=== PATIENT | female | born 1955 | race Caucasian/White ===

== ENCOUNTER 2021-12-07 08:27 | Emergency (ER) | payer MEDICARE, OTHER ==
[2021-12-07 08:38] VITALS: BP 123/81
--- NOTE | 2021-12-07 09:10 | ED Physician Documentation ---
History of Present Illness - Stated complaint Stated Complaint: SOA/CONGESTION - Chief complaint Chief Complaint: Resp - History obtained from History obtained from: Patient, Family - History of Present Illness Timing: How many days ago (3) - Additonal information Additional information: 66-year-old Kely Perez has recently had a compression fracture in her back which eventually led to diagnosis of metastatic breast cancer. Mets are to the bone. She has been placed on hormonal therapy has had some radiation to her back. She has now developed a rash to her left flank area with shocklike lancinating pains. She is concerned about shingles. She does have interstitial lung disease has had a cough for 3 months she has had imaging done of her chest and numerous capacities and the cough has not changed in the past week. She will see her ultrasonic seaming machine operator in the next 2 weeks. Review of Systems Constitutional: denies: Fever, Chills, Myalgias Ears: denies: Ear pain Nose: denies: Rhinorrhea / runny nose, Congestion, Sinus pressure / pain Throat: denies: Sore throat Cardiac: denies: Chest pain / pressure, Palpitations Respiratory: reports: Dyspnea, Cough GI: denies: Vomiting, Diarrhea Skin: reports: Rash PD PAST MEDICAL HISTORY - Present Medications Home Medications: Ambulatory Orders Medication Instructions Recorded Confirmed Valacyclovir HCl [Valtrex] 1,000 mg PO TID #21 tablet 12/07/21 - Allergies Allergies/Adverse Reactions: Allergies Allergy/AdvReac Type Severity Reaction Status Date / Time No Known Drug Allergies Allergy Verified 12/07/21 08:33 PD ED PE NORMAL - Vitals Vital signs reviewed: Yes (Tachycardic and hypertensive mild) - General General: Alert and oriented X 3, No acute distress, Well developed/nourished - HEENT HEENT: Atraumatic, PERRL, EOMI, Ears normal, Moist mucous membranes, Pharynx benign, Dentition benign - Neck Neck: Supple, no meningeal sign, No bony TTP - Cardiac Cardiac: RRR, No murmur - Respiratory Respiratory: No respiratory distress, Clear bilaterally - Abdomen Abdomen: Normal bowel sounds, Soft, Non tender, Non distended, No organomegaly - Back Back: No CVA TTP, No spinal TTP - Derm Derm: Normal color, Warm and dry, Other (There are tiny erythematous blisters in a dermatomal distribution on the left side likely related to a T10 or 11 dermatome.) - Extremities Extremities: No deformity, No edema - Neuro Neuro: Alert and oriented X 3, computer forensics investigator 2-12 intact, No motor deficit, No sensory deficit, Normal speech Eye Opening: Spontaneous Motor: Obeys Commands Verbal: Oriented GCS Score: 15 - Psych Psych: Normal mood, Normal affect Results - Vitals Vitals: Vital Signs - 24 hr 12/07/21 08:33 Temperature 36.7 C Heart Rate 102 H Respiratory 18 Rate Blood Pressure 123/81 H O2 Saturation 94 Oxygen O2 Source Room air PD MEDICAL DECISION MAKING - ED course Complexity details: considered differential, d/w patient, d/w family ED course: 66-year-old female with a recent diagnosis of metastatic breast cancer has shingles today. We will place her on some valacyclovir. She does have interstitial lung disease she has a chronic cough she has had imaging we are not pursuing further work-up of her lung disease today. She does have follow-up with her specialist. She has been tested multiple times for COVID. She is fully vaccinated. Departure - Departure Disposition: 01 Home, Self Care Clinical Impression: Shingles Qualifiers: Herpes zoster complications: without complications Qualified Code(s): B02.9 - Zoster without complications Condition: Stable Instructions: ED Shingles Follow-Up: Brain Guallpa MD [Provider Admit Priv/Credential] - Prescriptions: Valacyclovir HCl [Valtrex] 1,000 mg PO TID #21 tablet Comments: Kely, today it looks like you have the shingles. I have E scribed some valacyclovir to the [facility] in [place]. The expectation is reduction in your symptoms over the next 2 to 3 days. Follow-up with your ultrasonic seaming machine operator for further evaluation of your lungs as previously planned.
== END 2021-12-07 09:28 | disposition home or self-care (01) ==
LOC: ED 08:27
DX: B02.9 Zoster without complications (principal)
CPT/HCPCS: 99282

== ENCOUNTER 2022-01-28 09:06 | Outpatient (CLI) | payer MEDICARE, OTHER ==
[2022-01-28 09:24] LABS: BASOPHILS # (AUTO) 0.1 10^3/uL (0.0-0.1); BASOPHILS % (AUTO) 1.4 %; EOSINOPHILS % (AUTO) 1.1 %; HCT - HEMATOCRIT 36.8 % (37.0-47.0); HGB - HEMOGLOBIN 13.2 g/dL (12.0-16.0); LYMPHOCYTES # (AUTO) 0.6 10^3/uL (1.5-3.5); MEAN CORPUSCULAR HEMOGLOBIN 34.4 pg (27.0-31.0); MEAN CORPUSCULAR HGB CONC 35.9 g/dL (32.0-36.0); MEAN CORPUSCULAR VOLUME 95.8 fL (81.0-99.0); MEAN PLATELET VOLUME 10.1 fL (7.9-10.8); MONOCYTES # (AUTO) 0.3 10^3/uL (0.0-1.0); MONOCYTES % (AUTO) 7.2 %; NEUTROPHILS # (AUTO) 2.5 10^3/uL (1.5-6.6); PLT - PLATELET COUNT 173 10^3/uL (130-450); RED BLOOD COUNT 3.84 10^6/uL (4.20-5.40); RED CELL DISTRIBUTION WIDTH 16.5 % (12.0-15.0); WHITE BLOOD COUNT 3.5 x10^3/uL (4.8-10.8)
[2022-01-28 09:32] LABS: ALBUMIN 4.4 g/dL (3.2-5.5); ALBUMIN/GLOBULIN RATIO 1.3 (1.0-2.2); BILIRUBIN,TOTAL 0.9 mg/dL (0.2-1.0); CALCIUM 9.9 mg/dL (8.5-10.3); CREATININE 0.7 mg/dL (0.4-1.0); POTASSIUM 3.5 mmol/L (3.5-5.0); TOTAL PROTEIN 7.7 g/dL (6.7-8.2)
== END 2022-01-28 09:07 | disposition home or self-care (01) ==
LOC: LAB 09:06
PROVIDERS: ATTEND Internal Medicine
DX: C50.919 Malignant neoplasm of unspecified site of unspecified female breast (principal)
CPT/HCPCS: 36415; 80053; 85025

== ENCOUNTER 2022-03-19 09:15 | Emergency (ER) | payer MEDICARE, OTHER ==
--- NOTE | 2022-03-19 09:54 | XRAY Report ---
PROCEDURE: Chest 1 View X-Ray INDICATIONS: cough TECHNIQUE: One view of the chest was acquired. COMPARISON: None FINDINGS: Surgical changes and devices: None. Lungs and pleura: Mild increased interstitial prominence. Mediastinum: Mediastinal contours appear normal. Heart size is enlarged. Bones and chest wall: No suspicious bony lesions. Overlying soft tissues appear unremarkable. IMPRESSION: Mild increased interstitial prominence suggestive of interstitial pneumonia. However, edema, similar appearance. Reviewed by: Lacey Beal MD on 03/19/2022 9:53 AM PDT Approved by: Lacey Beal MD on 03/19/2022 9:53 AM PDT Station ID: [id number]
--- NOTE | 2022-03-19 11:22 | ED Physician Documentation ---
History of Present Illness - Stated complaint Stated Complaint: COUGH/BACK PX - Chief complaint Chief Complaint: Resp - History obtained from History obtained from: Patient - History of Present Illness Timing: How many weeks ago (2-3) Pain level max: 1 Pain level now: 1 - Additonal information Additional information: 66-year-old female with a history of interstitial lung disease as well as a history of breast cancer. Not currently undergoing chemotherapy or radiation. Presents to the emergency department with a cough for the past 2 weeks. Described as worsening. No fevers. No chills. Occasional clear sputum. Nothing seems to make it better or worse. 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 She denies smoking. No COVID exposure. No chest pain. No shortness of breath. No hypoxia. Does not use oxygen at home Review of Systems Constitutional: denies: Fever, Chills GI: denies: Vomiting, Diarrhea Skin: denies: Rash Musculoskeletal: denies: Neck pain, Back pain Neurologic: denies: Headache PD PAST MEDICAL HISTORY - Past Medical History Cardiovascular: High cholesterol Respiratory: Other Neuro: None Endocrine/Autoimmune: None GI: None SENIOR BACKUP ADMINISTRATOR: Breast cancer : None HEENT: None Psych: None Musculoskeletal: None Derm: None - Past Surgical History Past Surgical History: No - Present Medications Home Medications: Ambulatory Orders Medication Instructions Recorded Confirmed Albuterol Sulf [Ventolin Hfa 1 puffs INH Q4HR PRN 03/19/22 03/19/22 Inhaler] Atorvastatin [Lipitor] 40 mg PO DAILY 03/19/22 03/19/22 Benzonatate [Tessalon] 200 mg PO TID PRN #30 cap 03/19/22 Letrozole 2.5 mg PO DAILY 03/19/22 03/19/22 Oxycodone HCl 10 mg PO DAILY PRN 03/19/22 03/19/22 Palbociclib [Ibrance] 125 mg PO DAILY 03/19/22 03/19/22 predniSONE [Deltasone] 10 mg PO [id number] #42 tab 03/19/22 - Allergies Allergies/Adverse Reactions: Allergies Allergy/AdvReac Type Severity Reaction Status Date / Time No Known Drug Allergies Allergy Verified 03/19/22 09:24 - Social History Does the pt smoke?: No Smoking Status: Never smoker Does the pt drink ETOH?: No Does the pt have substance abuse?: No - Immunizations Immunizations are current?: Yes PD ED PE NORMAL - Vitals Vital signs reviewed: Yes - General General: Alert and oriented X 3, No acute distress - HEENT HEENT: Moist mucous membranes - Neck Neck: Supple, no meningeal sign - Cardiac Cardiac: RRR, Strong equal pulses - Respiratory Respiratory: No respiratory distress, Clear bilaterally - Derm Derm: Warm and dry - Neuro Neuro: Alert and oriented X 3 - Psych Psych: Normal mood, Normal affect Results - Vitals Vitals: Vital Signs - 24 hr 03/19/22 03/19/22 09:19 11:28 Temperature 36.2 C L Heart Rate 86 75 Respiratory 20 17 Rate Blood Pressure 118/74 133/82 H O2 Saturation 95 99 Oxygen O2 Source Room air - Rads (name of study) Chest x-ray Radiology: Final report received, EMP read contemporaneously, See rad report (Mild anterior stational prominence, suggestive of interstitial pneumonia, however edema could have similar appearance) PD MEDICAL DECISION MAKING - ED course Complexity details: reviewed results, re-evaluated patient, considered differential, d/w patient ED course: 66-year-old female with possible viral URI versus interstitial pneumonitis fl are. No evidence of bacterial infection. No fever. No hypoxia. No respiratory difficulty. We will trial her on steroids for home and have her follow-up with her PCP for further care. Patient is very well-appearing, nontoxic. Patient counseled regarding signs and symptoms for which I believe and urgent re-evaluation would be necessary. Patient with good understanding of and agreement to plan and is comfortable going home at this time This document was made in part using voice recognition software. While efforts are made to proofread this document, sound alike and grammatical errors may occur. Departure - Departure Disposition: Home, Self Care Clinical Impression: Interstitial pneumonitis Condition: Good Instructions: Disease Interstitial Lung Follow-Up: PAUL LUA MD [Primary Care Provider] - Within 1 week Joan Lagunas MD [Physician No Access] - Prescriptions: predniSONE [Deltasone] 10 mg PO [id number] #42 tab Benzonatate [Tessalon] 200 mg PO TID PRN #30 cap PRN Reason: Cough Comments: Your prescriptions were sent to [facility] in [place]. Please follow-up with your doctor for further care. Please return if you worsen. Discharge Date/Time: 03/19/22 11:29
[2022-03-19 11:30] VITALS: BP 133/82
== END 2022-03-19 11:29 | disposition home or self-care (01) ==
LOC: ED 09:15
DX: J84.89 Other specified interstitial pulmonary diseases (principal)
CPT/HCPCS: 99283; 99284

== ENCOUNTER 2022-03-23 17:45 | Outpatient (CLI) | payer MEDICARE, OTHER ==
[2022-03-23] MEDS ORDERED: DIATRIZOATE MEGLU/DIATRIZO SOD 30 ML BOTTLE PO ONE ×2 (18:20→19:40)
--- NOTE | 2022-03-23 20:16 | CT Report ---
PROCEDURE: CHEST W INDICATIONS: METASTATIC BREAST CA CONTRAST: IV CONTRAST: Optiray 320 ml: 100 PO CONTRAST: Optiray 320 ml30 TECHNIQUE: After the administration of intravenous contrast, 1 mm axial images were acquired from the pulmonary apices through the posterior costophrenic angles. Axial 5 mm soft tissue kernel reconstructions were performed as well as 8 mm axial MIP and coronal and sagittal 5 mm reformations. For radiation dose reduction, the following was used: automated exposure control, adjustment of mA and/or kV according to patient size. COMPARISON: None available. FINDINGS: Image quality: Excellent. Lower Neck: No lymphadenopathy by size criteria. Thyroid: Visualized thyroid demonstrates no discrete nodules. Axillae: No lymphadenopathy by size criteria. Chest Wall: Unremarkable. Bones: Multiple compression deformities are demonstrated throughout the thoracic spine. These include mild superior endplate compression deformities of the T4, T5, T6, T7, T9, T12 vertebral bodies with mild loss of height of less than 50%. Mild inferior endplate compression deformities also demonstrate d at T8 and T11 also with loss of height of less than 50%. No retropulsed fragments in the spinal can al. There is osteopenia with no definite destructive bony lesions. There is an indistinct sclerotic l esion partially visualized within the L1 vertebral body. There are bilateral healed rib fractures. Lungs and Airways: No acute consolidation. There are bilateral areas of septal thickening and reticu lation medially within the anterior lungs predominantly within the upper lobes likely representing se quelae of radiation pneumonitis. In addition, heterogeneous patchy ground glass opacities are also de monstrated bilaterally with a medial predominance. The findings may also represent radiation pneumoni tis but the differential includes other infectious inflammatory processes. There is a small indistinc t nodule in the right apex measuring 0.3 cm on series 3 image 34. The trachea and central airways are patent. Pleura: No pneumothorax or pleural effusions. Heart: Heart size is borderline enlarged. No pericardial effusion. Thoracic Vessels: The aorta and pulmonary arteries are normal in size. Mediastinum and Neha: No lymphadenopathy by size criteria. Esophagus: No wall thickening. No hiatal hernia. Abdomen: Visualized upper abdominal solid organs appear normal. Upper abdominal bowel loops are nor mal in caliber. IMPRESSION: 1. Bilateral septal thickening and reticulation consistent with sequelae of radiation pneumonitis dem onstrated medially in the lungs. Patchy heterogeneous areas of groundglass opacity within medial pred ominance in the lungs also likely reflect radiation pneumonitis but the differential includes other i nfectious and inflammatory processes such as atypical infection. 2. Small right apical nodule is also likely related to radiation pneumonitis but attention is recomme nded on follow-up. 3. Osteopenia with heterogeneous appearance of the mouth and indistinct sclerotic region in the verte bral body. Metastatic disease cannot be excluded and correlation is recommended with a bone scan. 4. Multiple mild compression deformities within the thoracic spine of indeterminate acuity. Reviewed by: Donnie Bobby MD on 03/23/2022 8:15 PM PDT Approved by: Donnie Bobby MD on 03/23/2022 8:15 PM PDT Station ID: [id number]
--- NOTE | 2022-03-23 20:23 | CT Report ---
PROCEDURE: Abdomen/Pelvis W INDICATIONS: METASTATIC BREAST CA CONTRAST: IV CONTRAST: Optiray 320 ml: 100 PO CONTRAST: Optiray 320 ml30 TECHNIQUE: After the administration of intravenous contrast, 5 mm thick sections acquired from the diaphragms to the symphysis. 5 mm thick coronal and sagittal reformats were acquired. For radiation dose reducti on, the following was used: automated exposure control, adjustment of mA and/or kV according to aimee ent size. COMPARISON: Concurrent CT of the chest. No prior abdominal CT available. FINDINGS: Image quality: Excellent. Lung bases: There is septal thickening with reticulation medially in the lungs compatible with seque lae of radiation pneumonitis. Heterogeneous indistinct groundglass opacities are demonstrated bilater ally with a medial predominance. Heart size is borderline enlarged. ABDOMEN: Liver: No mass lesion. Gallbladder: Within normal limits without calcified gallstones. Biliary ducts: No biliary ductal dilatation. Pancreas: Unremarkable. Spleen: Normal in size. Adrenal Glands: No adrenal nodules. Kidneys and Ureters: No hydronephrosis. Stomach and Bowel: Stomach, small bowel loops, and colon are normal in caliber and wall thickness. T here is colonic diverticulosis without acute diverticulitis. Peritoneum: No abnormal intraperitoneal fluid. No free air. Ventral Wall: No hernia. Abdominal Nodes: No retroperitoneal or mesenteric adenopathy by size criteria. Vessels: Aorta and inferior vena cava are normal in size. PELVIS: Pelvic Organs: Unremarkable. Bladder: Unremarkable. Pelvic Nodes: No enlarged lymph nodes. Miscellaneous: No inguinal hernias are seen. Bones:The bone marrow is heterogeneous in appearance with multiple indistinct sclerotic lesions like ly representing metastatic disease. Multiple compression deformities are demonstrated within the visu alized lower thoracic and lumbar spine. These include a mild superior endplate compression deformity of the L4 vertebral body with approximately 30% loss of height. Milder superior endplate scalloping a lso demonstrated at L2 and S1. There are mild superior endplate compression deformity is also demonst rated at T9 and T12 as well as inferior endplate compression deformities of T8 and T11. No retropulse d fragments in spinal canal. IMPRESSION: 1. Heterogeneous appearance of the bone marrow with multiple indistinct sclerotic lesions consistent with metastatic disease. 2. Multiple mild compression deformity is within the lumbar spine and visualized lower thoracic spine . Pathologic fractures cannot be excluded. Reviewed by: Donnie Davalos MD on 03/23/2022 8:22 PM PDT Approved by: Donnie Davalos MD on 03/23/2022 8:22 PM PDT Station ID: [id number]
== END 2022-03-23 17:46 | disposition home or self-care (01) ==
LOC: DI 17:45
PROVIDERS: ATTEND Internal Medicine
DX: C50.919 Malignant neoplasm of unspecified site of unspecified female breast (principal); C41.9 Malignant neoplasm of bone and articular cartilage, unspecified; S32.049A Unspecified fracture of fourth lumbar vertebra, initial encounter for closed fracture; S32.019A Unspecified fracture of first lumbar vertebra, initial encounter for closed fracture; S32.19XA Other fracture of sacrum, initial encounter for closed fracture; S22.069A Unspecified fracture of T7-T8 vertebra, initial encounter for closed fracture; S22.079A Unspecified fracture of T9-T10 vertebra, initial encounter for closed fracture; S22.089A Unspecified fracture of T11-T12 vertebra, initial encounter for closed fracture; R91.1 Solitary pulmonary nodule; M85.89 Other specified disorders of bone density and structure, multiple sites; R91.8 Other nonspecific abnormal finding of lung field
CPT/HCPCS: 71260; 74177; Q9963; Q9967

== ENCOUNTER 2022-03-25 08:09 | Outpatient (CLI) | payer MEDICARE, OTHER ==
[2022-03-25 08:29] LABS: EOSINOPHILS % (AUTO) 0.2 %; HCT - HEMATOCRIT 36.7 % (37.0-47.0); HGB - HEMOGLOBIN 13.1 g/dL (12.0-16.0); LYMPHOCYTES # (AUTO) 0.3 10^3/uL (1.5-3.5); LYMPHOCYTES % (AUTO) 7.4 %; MEAN CORPUSCULAR HGB CONC 35.7 g/dL (32.0-36.0); MEAN CORPUSCULAR VOLUME 103.7 fL (81.0-99.0); MEAN PLATELET VOLUME 10.1 fL (7.9-10.8); MONOCYTES # (AUTO) 0.3 10^3/uL (0.0-1.0); MONOCYTES % (AUTO) 6.7 %; NEUTROPHILS # (AUTO) 3.6 10^3/uL (1.5-6.6); PLT - PLATELET COUNT 207 10^3/uL (130-450); RED BLOOD COUNT 3.54 10^6/uL (4.20-5.40); RED CELL DISTRIBUTION WIDTH 15.5 % (12.0-15.0); WHITE BLOOD COUNT 4.2 x10^3/uL (4.8-10.8)
== END 2022-03-25 08:10 | disposition home or self-care (01) ==
LOC: LAB 08:09
PROVIDERS: ATTEND Internal Medicine
DX: C50.919 Malignant neoplasm of unspecified site of unspecified female breast (principal)
CPT/HCPCS: 36415; 85025

== ENCOUNTER 2022-06-20 15:57 | Outpatient (CLI) | payer MEDICARE, OTHER ==
[2022-06-20 16:20] LABS: BASOPHILS # (AUTO) 0.1 10^3/uL (0.0-0.1); BASOPHILS % (AUTO) 2.1 %; EOSINOPHILS # (AUTO) 0.1 10^3/uL (0.0-0.7); EOSINOPHILS % (AUTO) 5.1 %; HGB - HEMOGLOBIN 11.9 g/dL (12.0-16.0); LYMPHOCYTES # (AUTO) 0.6 10^3/uL (1.5-3.5); LYMPHOCYTES % (AUTO) 23.8 %; MEAN CORPUSCULAR VOLUME 108.6 fL (81.0-99.0); MONOCYTES # (AUTO) 0.2 10^3/uL (0.0-1.0); MONOCYTES % (AUTO) 9.4 %; NEUTROPHILS # (AUTO) 1.4 10^3/uL (1.5-6.6); NEUTROPHILS % (AUTO) 59.2 %; PLT - PLATELET COUNT 221 10^3/uL (130-450); RED BLOOD COUNT 3.13 10^6/uL (4.20-5.40); RED CELL DISTRIBUTION WIDTH 13.2 % (12.0-15.0); WHITE BLOOD COUNT 2.4 x10^3/uL (4.8-10.8)
[2022-06-20 16:30] LABS: SLIDE REVIEW? Indicated
[2022-06-20 16:41] LABS: ALBUMIN 3.9 g/dL (3.2-5.5); ALBUMIN/GLOBULIN RATIO 1.2 (1.0-2.2); BILIRUBIN,TOTAL 0.6 mg/dL (0.2-1.0); CREATININE 0.7 mg/dL (0.4-1.0); POTASSIUM 3.5 mmol/L (3.5-5.0); TOTAL PROTEIN 7.2 g/dL (6.7-8.2)
[2022-06-20 17:20] LABS: RBC MORPHOLOGY (MULTIPLE) 1+ ANISOCYTOSIS (NORMAL)
[2022-06-20 17:21] LABS: DIFFERENTIAL COMMENT MANUAL=AUTO DIFF; PLATELET ESTIMATE, MANUAL NORMAL (130-450,000) (NORMAL); PLATELET MORPHOLOGY NORMAL APPEARANCE (NORMAL)
== END 2022-06-20 15:58 | disposition home or self-care (01) ==
LOC: LAB 15:57
PROVIDERS: ATTEND Internal Medicine
DX: C50.919 Malignant neoplasm of unspecified site of unspecified female breast (principal)
CPT/HCPCS: 36415; 80053; 85025; 86300